=== PATIENT | female | born 2000 | race Caucasian/White ===

== ENCOUNTER 2018-02-25 22:17 | Emergency (ER) | payer MEDICAID, OTHER ==
[~2018-02-25] VITALS: Ht 167.6 cm; Wt 65.5 kg
[2018-02-25 22:20] VITALS: BP 119/73
--- NOTE | 2018-02-25 23:24 | NUR ---
not in lobby
[2018-02-25] MEDS ORDERED: SODIUM CHLORIDE FLUSH 10ML SYR IVF ONE (23:30)
[2018-02-25] MEDS ORDERED: KETOROLAC 30 MG/1 ML IVPush ONE (23:30)
[2018-02-25] MEDS ORDERED: MORPHINE SULFATE 4 MG/ML, 1ML IVPush PRN (23:30)
--- NOTE | 2018-02-25 23:40 | NUR ---
not in lobby
[2018-02-25 23:47] LABS: MICROSCOPIC INDICATED
[2018-02-25 23:54] LABS: CULTURE INDICATED? NO
== END 2018-02-26 | disposition left against medical advice (07) ==
LOC: ED 23:54
DX: R52 Pain, unspecified (principal); Z53.21 Procedure and treatment not carried out due to patient leaving prior to being seen by health care provider
CPT/HCPCS: 80053; 81001; 83690; 84703; 85025

== ENCOUNTER 2019-12-29 23:07 | Emergency (ER) | payer MEDICAID ==
[~2019-12-29] VITALS: Ht 170.2 cm; Wt 67.0 kg
[2019-12-30 00:34] LABS: MICROSCOPIC INDICATED
[2019-12-30 00:35] LABS: BASOPHILS % (AUTO) 0 % (0-1); EOSINOPHILS % (AUTO) 1 % (1-7); LYMPHOCYTES % (AUTO) 13 % (22-44); MEAN CORPUSCULAR HEMOGLOBIN 30.6 pg (27.0-34.8); MEAN CORPUSCULAR HGB CONC 33.8 g/dL (32.4-35.8); MEAN PLATELET VOLUME 7.8 fL (7.4-10.4); MONOCYTES % (AUTO) 4 % (2-9); NEUTROPHILS % (AUTO) 82 % (42-75); PLATELET COUNT 299 x10^3/uL (130-400); RED BLOOD COUNT 4.42 x10^6/uL (3.82-5.3); RED CELL DISTRIBUTION WIDTH 13.3 % (9.6-15.2)
[2019-12-30 00:45] LABS: ANION GAP 6 mmol/L (5-15); CALCIUM 9.2 mg/dL (8.5-10.1); CHLORIDE 109 mmol/L (98-107); CREATININE 0.67 mg/dL (0.55-1.02)
--- NOTE | 2019-12-30 00:51 | NUR ---
pt called to room from lobby
[2019-12-30 01:14] LABS: MD SCAN
[2019-12-30] MEDS ORDERED: SODIUM CHLORIDE 0.9% 1,000ML IVBOLUS ONE (01:30)
[2019-12-30] MEDS ORDERED: ONDANSETRON 2MG/ML, 2ML IVPush ONE (01:30)
[2019-12-30] MEDS ORDERED: ACETAMINOPHEN 500 MG TABLET PO ONE (01:30)
[2019-12-30] MEDS ORDERED: ACETAMINOPHEN 500 MG TABLET ONE (01:32)
[2019-12-30] MEDS ORDERED: ONDANSETRON 2MG/ML, 2ML ONE (01:32)
--- NOTE | 2019-12-30 01:45 | NUR ---
PT TO IMAGING AT 0130.
--- NOTE | 2019-12-30 02:42 | NUR ---
RADIOLOGY CALLED TO INQUIRE ABOUT IMAGING RESULTS.
--- NOTE | 2019-12-30 03:31 | NUR ---
PT SLEEPING. STATES PAIN AND NAUSEA RESOLVED. ALL NEEDS MET AT THIS TIME. CAL.
--- NOTE | 2019-12-30 03:56 | NUR ---
PT PROVIDED WITH WATER FOR PO CHALLENGE.
[2019-12-30 04:33] VITALS: BP 101/52
== END 2019-12-30 04:36 | disposition home or self-care (01) ==
LOC: ED 12-30 04:24
DX: O99.511 Diseases of the respiratory system complicating pregnancy, first trimester (principal); Z20.828 Contact with and (suspected) exposure to other viral communicable diseases; R58 Hemorrhage, not elsewhere classified; R05 Cough; R06.02 Shortness of breath; E86.0 Dehydration; Z3A.01 Less than 8 weeks gestation of pregnancy; R11.2 Nausea with vomiting, unspecified; R10.2 Pelvic and perineal pain
CPT/HCPCS: 36415; 71045; 76801; 80048; 81001; 84702; 85025; 87086; 87635; 93005; 96361; 96374; 99285; J2405; J7030

== ENCOUNTER 2020-04-27 20:54 | Outpatient (CLI) | payer MEDICAID ==
[~2020-04-27] VITALS: Ht 170.2 cm; Wt 73.6 kg
[2020-04-27 21:02] VITALS: BP 117/77
[2020-04-27 21:34] LABS: MICROSCOPIC INDICATED
[2020-04-27 21:44] LABS: AMPHETAMINE SCREEN, URINE Negative (Negative); BARBITURATE SCREEN, URINE Negative (Negative); BENZODIAZEPINE SCREEN, URINE Negative (Negative); CANNABINOID SCREEN, URINE Positive (Negative); COCAINE SCREEN, URINE Negative (Negative); METHADONE SCREEN, URINE Negative (Negative); OPIATE SCREEN, URINE Negative (Negative)
[2020-04-27] MEDS ORDERED: NITROFURANTOIN (MACROBID) 100 MG CAPSULE ONE (22:08)
[2020-04-27] MEDS ORDERED: NITROFURANTOIN (MACROBID) 100 MG CAPSULE PO ONE (22:30)
== END 2020-04-27 22:20 | disposition home or self-care (01) ==
LOC: LDOP 20:54
PROVIDERS: ATTEND Obstetrics & Gynecology
DX: O26.892 Other specified pregnancy related conditions, second trimester (principal); M54.9 Dorsalgia, unspecified; Z3A.24 24 weeks gestation of pregnancy
CPT/HCPCS: 80307; 81001; 87086; 99211; G0463

== ENCOUNTER 2020-05-25 17:09 | Outpatient (CLI) | payer MEDICAID ==
[~2020-05-25] VITALS: Ht 172.7 cm; Wt 75.0 kg
[2020-05-25 17:21] VITALS: BP 109/59
[2020-05-25 17:48] LABS: MICROSCOPIC INDICATED
[2020-05-25 18:05] LABS: AMPHETAMINE SCREEN, URINE Negative (Negative); BARBITURATE SCREEN, URINE Negative (Negative); BENZODIAZEPINE SCREEN, URINE Negative (Negative); CANNABINOID SCREEN, URINE Positive (Negative); COCAINE SCREEN, URINE Negative (Negative); METHADONE SCREEN, URINE Negative (Negative); OPIATE SCREEN, URINE Negative (Negative)
== END 2020-05-25 18:35 | disposition home or self-care (01) ==
LOC: LDOP 17:09
PROVIDERS: ATTEND Obstetrics & Gynecology
DX: O26.893 Other specified pregnancy related conditions, third trimester (principal); R42 Dizziness and giddiness; H53.8 Other visual disturbances; Z3A.33 33 weeks gestation of pregnancy
CPT/HCPCS: 59025; 80307; 81001; 87086

== ENCOUNTER 2020-07-27 18:29 | Outpatient (CLI) | payer BC, MEDICAID ==
[~2020-07-27] VITALS: Ht 170.2 cm; Wt 81.7 kg
[2020-07-27 19:14] VITALS: BP 118/58
== END 2020-07-27 19:58 | disposition home or self-care (01) ==
LOC: LDOP 18:29
PROVIDERS: ATTEND Obstetrics & Gynecology
DX: O26.893 Other specified pregnancy related conditions, third trimester (principal); R10.9 Unspecified abdominal pain; Z3A.37 37 weeks gestation of pregnancy
CPT/HCPCS: 59025; 89060; Q0114

== ENCOUNTER → 2020-08-04 | Outpatient (CLI) | payer MEDICAID ==
[~2020-08-04] VITALS: Ht 170.2 cm; Wt 80.0 kg
[~2020-08-04] MED LIST: PREN1TAB60 PO
[2020-08-04 16:11] VITALS: BP 119/64
[2020-08-04 17:03] LABS: MICROSCOPIC INDICATED
[2020-08-04 17:09] LABS: AMPHETAMINE SCREEN, URINE Negative (Negative); BARBITURATE SCREEN, URINE Negative (Negative); BENZODIAZEPINE SCREEN, URINE Negative (Negative); CANNABINOID SCREEN, URINE Positive (Negative); COCAINE SCREEN, URINE Negative (Negative); METHADONE SCREEN, URINE Negative (Negative); OPIATE SCREEN, URINE Negative (Negative)
== END | disposition home or self-care (01) ==
LOC: LDOP 15:57
PROVIDERS: ATTEND Obstetrics & Gynecology
DX: O26.893 Other specified pregnancy related conditions, third trimester (principal); R10.9 Unspecified abdominal pain; Z3A.38 38 weeks gestation of pregnancy
CPT/HCPCS: 80307; 81001

== ENCOUNTER 2020-08-09 05:01 | Inpatient (IN) | payer MEDICAID ==
[~2020-08-09] VITALS: Ht 170.2 cm; Wt 82.7 kg
[2020-08-09] MEDS ORDERED: FENTANYL PF 100 MCG/2ML IV PRN (05:30)
[2020-08-09] MEDS ORDERED: FENTANYL PF 100 MCG/2ML IVPush PRN (05:30)
[2020-08-09] MEDS ORDERED: TERBUTALINE 1 MG/ML, 1ML IVPush PRN (05:30)
[2020-08-09] MEDS ORDERED: OXYTOCIN 30U/ 0.9% NaCL 500ML 500 ML IV PRN (05:30)
[2020-08-09] MEDS ORDERED: OXYTOCIN 30U/ 0.9% NaCL 500ML 500 ML IV ONE (05:30)
[2020-08-09] MEDS ORDERED: TERBUTALINE 1 MG/ML, 1ML SQ PRN (05:30)
[2020-08-09] MEDS ORDERED: OXYTOCIN 30U/ 0.9% NaCL 500ML 500 ML ONE (05:32)
[2020-08-09 05:52] VITALS: BP 131/76
[2020-08-09 05:52] LABS: BASOPHILS % (AUTO) 1 % (0-1); EOSINOPHILS % (AUTO) 1 % (1-7); LYMPHOCYTES % (AUTO) 28 % (22-44); MEAN CORPUSCULAR HEMOGLOBIN 30.3 pg (27.0-34.8); MEAN CORPUSCULAR HGB CONC 34.6 g/dL (32.4-35.8); MEAN PLATELET VOLUME 9.5 fL (7.4-10.4); MONOCYTES % (AUTO) 7 % (2-9); NEUTROPHILS % (AUTO) 64 % (42-75); PLATELET COUNT 179 x10^3/uL (130-400); RED BLOOD COUNT 3.42 x10^6/uL (3.82-5.3); RED CELL DISTRIBUTION WIDTH 13.5 % (9.6-15.2)
[2020-08-09] MEDS ORDERED: PLEASE ENTER HEIGHT AND WEIGHT MC SCH (06:00)
[2020-08-09 06:02] LABS: AMPHETAMINE SCREEN, URINE Negative (Negative); BARBITURATE SCREEN, URINE Negative (Negative); BENZODIAZEPINE SCREEN, URINE Negative (Negative); CANNABINOID SCREEN, URINE Positive (Negative); COCAINE SCREEN, URINE Negative (Negative); METHADONE SCREEN, URINE Negative (Negative); OPIATE SCREEN, URINE Negative (Negative)
[2020-08-09] MEDS ORDERED: CLINDAMYCIN PMX 900MG/50ML 50 ML ONE (06:03)
[2020-08-09] MEDS: CLINDAMYCIN PMX 900MG/50ML 50 ML IVPB SCH ×3 (06:12→21:30)
[2020-08-09] MEDS ORDERED: LIDOCAINE 1%, 20ML ONE (08:08)
[2020-08-09] MEDS ORDERED: MISOPROSTOL 200 MCG TABLET ONE (08:08)
[2020-08-09] MEDS ORDERED: NEWBORN KIT ONE (08:12)
[2020-08-09] MEDS: LACTATED RINGERS 1,000 ML IV SCH (11:54)
[2020-08-09] MEDS ORDERED: LACTATED RINGERS 1,000 ML IV SCH (19:30)
[2020-08-09] MEDS ORDERED: EPHEDRINE 50 MG/ML, 1ML IVPush PRN (19:30)
[2020-08-09] MEDS ORDERED: LACTATED RINGERS 1,000 ML IVBOLUS PRN (19:30)
[2020-08-09] MEDS ORDERED: FENTANYL/BUPIV./NS/PF 250 ML EPIDCONT SCH (19:30)
[2020-08-09] MEDS ORDERED: NALOXONE 0.4 MG/ML, 1ML IVPush PRN (19:30)
[2020-08-09] MEDS ORDERED: BUPIVACAINE 0.25% ONE (19:32)
[2020-08-09] MEDS ORDERED: FENTANYL/BUPIV./NS/PF 250 ML EPIDCONT ONE (19:32)
[2020-08-09] MEDS: ONDANSETRON 2MG/ML, 2ML IVPush PRN (21:40)
[2020-08-10 01:26] VITALS: BP 110/70
[2020-08-10] MEDS: ONDANSETRON 2MG/ML, 2ML IVPush PRN (04:15)
[2020-08-10] MEDS: CLINDAMYCIN PMX 900MG/50ML 50 ML IVPB SCH (05:13)
[2020-08-10] MEDS: LACTATED RINGERS 1,000 ML IV SCH (05:13)
[2020-08-10] MEDS ORDERED: D5%-LACTATED RINGERS 1,000 ML IV SCH ×2 (05:30→06:00)
[2020-08-10] MEDS ORDERED: IBUPROFEN 600 MG TABLET ONE (10:18)
[2020-08-10] MEDS ORDERED: OXYcodone/APAP 5/325MG TABLET ONE (10:18)
[2020-08-10] MEDS ORDERED: MISOPROSTOL 200 MCG TABLET PR PRN (10:30)
[2020-08-10] MEDS ORDERED: OXYTOCIN 30U/ 0.9% NaCL 500ML 500 ML IV SCH (10:30)
[2020-08-10] MEDS ORDERED: ONDANSETRON 2MG/ML, 2ML IV PRN (10:30)
[2020-08-10] MEDS ORDERED: IBUPROFEN 600 MG TABLET PO PRN (10:30)
[2020-08-10] MEDS ORDERED: BISACODYL 10 MG SUPP PR PRN (10:30)
[2020-08-10] MEDS ORDERED: SIMETHICONE 80 MG CHEW TAB PO PRN (10:30)
[2020-08-10] MEDS ORDERED: CARBOPROST TROMETHAMINE 250 MCG/ML, 1ML IM PRN (10:30)
[2020-08-10] MEDS ORDERED: METHYLERGONOVINE 0.2 MG/ML IM PRN (10:30)
[2020-08-10 12:00] VITALS: BP 120/74
[2020-08-10 16:30] VITALS: BP 119/76
[2020-08-10 18:17] LABS: BASOPHILS % (AUTO) 0 % (0-1); EOSINOPHILS % (AUTO) 0 % (1-7); LYMPHOCYTES % (AUTO) 8 % (22-44); MEAN CORPUSCULAR HEMOGLOBIN 29.3 pg (27.0-34.8); MEAN PLATELET VOLUME 9.6 fL (7.4-10.4); MONOCYTES % (AUTO) 6 % (2-9); NEUTROPHILS % (AUTO) 86 % (42-75); PLATELET COUNT 181 x10^3/uL (130-400); RED BLOOD COUNT 3.36 x10^6/uL (3.82-5.3); RED CELL DISTRIBUTION WIDTH 13.4 % (9.6-15.2)
[2020-08-10 19:30] VITALS: BP 119/71
[2020-08-10] MEDS: DOCUSATE 100 MG CAPSULE PO PRN (20:25)
[2020-08-11 00:15] VITALS: BP 110/69
[2020-08-11 04:00] VITALS: BP 115/72
[2020-08-11] MEDS ORDERED: D5%-LACTATED RINGERS 1,000 ML IV SCH (05:30)
[2020-08-11 07:30] VITALS: BP 126/87
[2020-08-11] MEDS: DOCUSATE 100 MG CAPSULE PO PRN (08:11)
[2020-08-11] MEDS ORDERED: PRENATAL VIT/IRON/FA 1 EACH TABLET PO SCH (09:00)
== END 2020-08-11 18:40 | disposition home or self-care (01) | DRG 807 ==
LOC: LDIP 05:01 → 2NW 08-10 11:55
PROVIDERS: ADMIT Obstetrics & Gynecology; ATTEND Obstetrics & Gynecology
PROC: 10E0XZZ Delivery of Products of Conception, External Approach (ICD-10-PCS; principal; 2020-08-10)
PROC: 0KQM0ZZ Repair Perineum Muscle, Open Approach (ICD-10-PCS; 2020-08-10)
DX: O99.824 Streptococcus B carrier state complicating childbirth (principal); Z37.0 Single live birth; Z20.822 Contact with and (suspected) exposure to COVID-19; O70.1 Second degree perineal laceration during delivery; Z3A.39 39 weeks gestation of pregnancy
CPT/HCPCS: 36415; J7121; 80307; 85025; 86592; 86850; 86900; 87635; G0378; J2405; J2590; J7120

== ENCOUNTER 2020-11-08 11:01 | Emergency (ER) | payer BC, MEDICAID ==
[~2020-11-08] VITALS: Ht 170.2 cm; Wt 69.6 kg
[2020-11-08 11:33] VITALS: BP 108/63
[2020-11-08 14:10] LABS: RAPID INFLUENZA A Negative (Negative); RAPID INFLUENZA B Negative (Negative)
== END 2020-11-08 12:01 | disposition left against medical advice (07) ==
LOC: ED 11:31
DX: B34.9 Viral infection, unspecified (principal); J06.9 Acute upper respiratory infection, unspecified; Z20.822 Contact with and (suspected) exposure to COVID-19
CPT/HCPCS: 87400; 99283; U0003; U0005